=== PATIENT | female | born 1965 | race Caucasian/White ===

== ENCOUNTER 2019-03-03 07:47 | Observation (INO) | payer OTHER ==
[2019-03-03] MEDS ORDERED: PHENAZOPYRIDINE HCL 200 MG TAB PO ONE (08:06)
[2019-03-03] MEDS ORDERED: ceFAZolin 2 GM/DEXTROSE 100 ML IV ONE (08:06)
[2019-03-03] MEDS ORDERED: ACETAMINOPHEN 500 MG TAB PO ONE (08:06)
[2019-03-03] MEDS ORDERED: GABAPENTIN 300 MG CAP PO ONE (08:06)
[2019-03-03] MEDS ORDERED: LIDOCAINE 1% 2 ML INJ ID PRN (08:11)
[2019-03-03] MEDS ORDERED: LR 1,000 ML IV ONE (08:11)
--- NOTE | 2019-03-03 08:30 | PDHPUP ---
History & Physical Update H&P update statement: This history and physical update is based on an assessment of the patient which was completed after admission or registration (within 24 hours), but prior to the surgery/procedure. H&P update: H&P reviewed & patient examined, no change in patient's condition since H&P completed
[2019-03-03] MEDS ORDERED: MIDAZOLAM 2 MG/2 ML VIAL IVP ONE (08:49)
--- NOTE | 2019-03-03 08:53 | PDANEPAE ---
ANE History of Present Illness 53 yo with uterine prolapse ANE Past Medical History - Cardiovascular History Hx Hypertension: No Hx Arrhythmias: No Hx Chest Pain: No Hx Coronary Artery / Peripheral Vascular Disease: No Hx CHF / Valvular Disease: No Hx Palpitations: No - Pulmonary History Hx COPD: No Hx Asthma/Reactive Airway Disease: No Hx Recent Upper Respiratory Infection: No Hx Oxygen in Use at Home: No Hx Sleep Apnea: Yes Sleep Apnea Screening Result - Last Documented: Positive Pulmonary History Comment: PNEUMONIA YRS AGO. EXERCISE INDUCED ASTHMA IN PAST. POS ADITI W/CPAP - Neurologic History Hx Cerebrovascular Accident: No Hx Seizures: No Hx Dementia: No Neurologic History Comment: MIGRAINES - Endocrine History Hx Diabetes: No Endocrine History Comment: HYPOTHYROID - Renal History Hx Renal Disorders: No Renal History Comment: PROLAPSED BLADDER - Liver History Hx Hepatic Disorders: No - Neurological & Psychiatric Hx Hx Neurological and Psychiatric Disorders: No - Cancer History Hx Cancer: No - Congenital Disorder History Hx Congenital Disorders: No - GI History Hx Gastrointestinal Disorders: Yes Gastrointestinal History Comment: RECTAL PROLAPSE. IBS IN PAST - Other Health History Other Health History: NEG - Chronic Pain History Chronic Pain: No - Surgical History Prior Surgeries: BUNIONECTOMIES MELANY. HYSTERECTOMY. INCISIONAL HERNIA. DERMOID CYST ANE Review of Systems Review of systems is: negative Review of Systems: - Exercise capacity METS (RN): 5 METS ANE Patient History - Allergies Allergies/Adverse Reactions: amoxicillin Allergy (Verified 02/15/19 10:55) GI UPSET erythromycin base Allergy (Verified 02/15/19 10:55) GI UPSET Sulfa (Sulfonamide Antibiotics) Allergy (Verified 02/15/19 10:55) PURPLE SKIN SPOTS - Home Medications Home medications: home medication list seen and reviewed Home Medications: [place] Thyroid 02/15/19 [Last Taken 03/03/19 05:30] Herbals/Supplements -Info Only 02/15/19 [Last Taken 03/01/19] Migraine Med 02/15/19 [Last Taken 02/17/19] - NPO status NPO Since - Liquids (Date): 03/03/19 NPO Since - Liquids (Time): 06:20 NPO Since - Solids (Date): 03/02/19 NPO Since - Solids (Time): 20:45 - Anes Hx Anes Hx: post operative nausea and vomiting - Smoking Hx Smoking Status: Never smoked - Alcohol Use Alcohol Use: Other (2 per week) - Family Anes Hx Family Hx Anesthesia Complications: SLOW TO AWAKEN - MOTHER ANE Labs/Vital Signs - Vital Signs Blood Pressure: 145/86 Heart Rate: 83 Respiratory Rate: 16 O2 Sat (%): 96 Height: 168.91 cm Weight: 81.647 kg ANE Physical Exam - Airway Neck exam: FROM Mallampati Score: Class 1 Mouth exam: normal dental/mouth exam - Pulmonary Pulmonary: no respiratory distress - Cardiovascular Cardiovascular: regular rate and rhythym - ASA Status ASA Status: II ANE Anesthesia Plan Anesthesia Plan: general endotracheal anesthesia
[2019-03-03] MEDS ORDERED: BUPIVACAINE/EPI 0.5% 30 ML SDV ONE (08:58)
[2019-03-03] MEDS ORDERED: MIDAZOLAM 2 MG/2 ML VIAL ONE (09:00)
[2019-03-03] MEDS ORDERED: SCOPOLAMINE HYDROBROMIDE 1 MG/3 DAYS PATCH TD SCH (09:00)
[2019-03-03] MEDS ORDERED: SCOPOLAMINE HYDROBROMIDE 1 MG/3 DAYS PATCH TD ONE (09:01)
[2019-03-03] MEDS ORDERED: fentaNYL 250 MCG/5 ML INJ ONE (09:07)
[2019-03-03] MEDS ORDERED: PROPOFOL 200 MG/20 ML VIAL ONE (09:07)
[2019-03-03] MEDS ORDERED: PROPOFOL/EMULSION 500 MG/50 ML BOTTLE IV ONE ×2 (09:08→10:16)
[2019-03-03] MEDS ORDERED: ROCURONIUM 50 MG/5 ML VIAL ONE ×2 (09:09→10:03)
[2019-03-03] MEDS ORDERED: LIDOCAINE 2% 2 ML INJ ONE (09:09)
[2019-03-03] MEDS ORDERED: DEXAMETHASONE 4 MG/ML VIAL ONE (09:13)
[2019-03-03] MEDS ORDERED: fentaNYL 100 MCG/2 ML INJ ONE (10:20)
[2019-03-03] MEDS ORDERED: SUGAMMADEX SODIUM 200 MG/2 ML VIAL IVP ONE (11:04)
[2019-03-03] MEDS ORDERED: HYDROmorphONE/DILAUDID 2 MG/ML INJ ONE (11:18)
--- NOTE | 2019-03-03 11:24 | POSTOPPROG ---
Post Op Note Date of Operation: 03/03/19 Surgeon: Krishan Wu Drop Forger: Alexa Joy Anesthesia: GET(General Endotracheal) Pre-op Diagnosis: Cystocele Post-op Diagnosis: Same Procedure: Robotic sacrocolpopexy, perineorrhaphy, cysto Findings: Ureters function at end of case Inf/Abcess present in the surg proc area at time of surgery?: No EBL: Minimal Complications: None
[2019-03-03] MEDS ORDERED: HYDROmorphONE/DILAUDID 1 MG/ML INJ IVP PRN ×2 (11:29→14:11)
[2019-03-03] MEDS ORDERED: oxyCODONE IR 5 MG TAB PO PRN (11:29)
[2019-03-03] MEDS ORDERED: NALOXONE HCL 0.4 MG/ML INJ IVP PRN (11:29)
[2019-03-03] MEDS ORDERED: PROMETHAZINE HCL 25 MG/ML INJ IVP PRN (11:29)
[2019-03-03] MEDS ORDERED: fentaNYL 100 MCG/2 ML INJ IVP PRN (11:29)
[2019-03-03] MEDS ORDERED: ONDANSETRON 4 MG/2 ML VIAL IVP PRN ×2 (11:29→14:11)
--- NOTE | 2019-03-03 11:30 | POSTANESTH ---
Post Anesthetic Evaluation Cardiovascular Status: Normal, Stable Respiratory Status: Normal, Stable Level of Consciousness/Mental Status: Mildly Sleepy, Arousable Pain Control: Inadeq, Add Tx Required Nausea/Vomiting Control: Adequate, Prn Tx Ordered Complications Possibly Related to Anesthesia: None Noted
--- NOTE | 2019-03-03 12:12 | GOP ---
[f rep st] OPERATIVE REPORT DATE OF OPERATION: 03/03/2019 SURGEON: Krishan Wu MD HAMMER REPAIRER: Alexa Joy CFA. ANESTHESIA: General. PREOPERATIVE DIAGNOSIS: 1. Cystocele. 2. Rectocele. 3. Vault prolapse. POSTOPERATIVE DIAGNOSIS: 1. Cystocele. 2. Rectocele. 3. Vault prolapse. 4. Endometriosis. PROCEDURE PERFORMED: 1. Robotic-assisted laparoscopic sacral colpopexy with mesh. 2. Repair of cystocele and rectocele. 3. Excision of endometriosis. 4. Perineorrhaphy. 5. Cystoscopy. FINDINGS: SPECIMENS: Pelvic peritoneum with endometriosis. ESTIMATED BLOOD LOSS: Scant. DESCRIPTION OF PROCEDURE: The patient is taken to the operating room where she was identified. Gene ral anesthesia was administered and found to be adequate. She was placed in the lithotomy position a nd prepared and draped in the normal sterile fashion. [place] catheter was placed in her bladder. An 8 mm infraumbilical incision was made with the scalpel. The Veress needle with the CO2 gas flowin g was advanced into the peritoneal cavity. The abdomen was then insufflated with carbon dioxide gas. The 8 mm trocar followed by the laparoscope were then inserted. The upper abdomen was unremarkable . Two lateral ports were placed on either side under direct visualization. She then was placed in T rendelenburg position and the da Syed robot docked on the left side. The instruments were brought i nto the abdominal cavity under direct visualization. She was found to have endometriosis over the ap ex of the vagina. This was excised and sent to Pathology. A stent was placed in the vagina. The bl adder was dissected off the anterior vaginal wall down to the level of the bladder neck. The rectum was then dissected off the posterior vaginal wall down to the level of the perineal body. Measuremen ts were then obtained and the mesh trimmed to size. The sigmoid colon was retracted laterally. The peritoneum over the sacral promontory was incised and the fat pad gently dissected off the anterior longitudinal ligament. The mesh was brought into the abdominal cavity. Three sutures of 4-0 [place]-Haresh were used to attach the distal posterior mesh to the perineal body. Two additional rows of [place]-Haresh sutures were placed posteriorly. Three rows were pl aced anteriorly to suture the anterior mesh down to the level of the bladder neck and laterally to th e paravaginal tissue. The stent was then removed. The sacral arm of the mesh was placed over the pr omontory and the tension adjusted to resolve the cystocele and rectocele without undue tension on the vagina. Three sutures of 2-0 [place]-Haresh were used to attach the sacral arm of the mesh to the anterio r longitudinal ligament at the level of the upper first sacral vertebral body below the intervertebra l disk space. The excess mesh was then trimmed. The peritoneum was then closed over the entire mesh with 3-0 V-Loc suture. The robot was then undocked. The fascia was closed with 0 Vicryl, skin with 4-0 Monocryl. Cystoscopy was then performed. Both ureters had vigorous jets of urine. No evidence of bladder, nor urethral injury seen. No mesh, nor suture within the bladder, nor the urethra. No obvious patholog y was seen. A transverse incision was then made along the perineal body. The posterior vaginal epithelium was un dermined with the Metzenbaum scissors and incised sagittally. The epithelium was then dissected off the rectovaginal connective tissue. The connective tissue was plicated midline with 0 Vicryl suture. The transverse perineal and bulbous spongiosis muscles were then likewise plicated in the midline. The excess epithelium was then trimmed and closed with a running 2-0 Vicryl suture. Vaginal packing was then placed. Anesthesia was reversed. The patient taken the PACU awake, in stable condition. COMPLICATIONS: None. DISPOSITION: Patient stable to PACU. /[id number]/MODL
[2019-03-03] MEDS ORDERED: HYDROCODONE/APAP 5/325 TAB PO PRN (14:11)
[2019-03-03] MEDS ORDERED: ONDANSETRON DISINTEGRATING 4 MG TAB PO PRN (14:11)
[2019-03-03] MEDS ORDERED: LR 1,000 ML IV SCH (14:30)
[2019-03-03] MEDS ORDERED: ONDANSETRON 4 MG/2 ML VIAL ONE (14:36)
[2019-03-03] MEDS ORDERED: PROMETHAZINE HCL 25 MG/ML INJ ONE (14:54)
[2019-03-03] MEDS: KETOROLAC 30 MG/1 ML SDV IVP SCH ×2 (16:56→22:39)
[2019-03-03] MEDS: SIMETHICONE 80 MG TAB CHEW PO SCH ×2 (19:30→22:12)
[2019-03-03] MEDS ORDERED: ACETAMINOPHEN 325 MG TAB PO PRN (21:52)
[2019-03-03] MEDS: DOCUSATE SODIUM 100 MG CAP PO SCH (22:04)
[2019-03-04] MEDS: KETOROLAC 30 MG/1 ML SDV IVP SCH (04:58)
[2019-03-04] MEDS: DOCUSATE SODIUM 100 MG CAP PO SCH (09:52)
[2019-03-04] MEDS: SIMETHICONE 80 MG TAB CHEW PO SCH (09:52)
[2019-03-04 10:00] VITALS: BP 99/64
--- NOTE | 2019-03-04 10:05 | GDS ---
[f rep st] DISCHARGE SUMMARY DISCHARGE DIAGNOSIS: Vaginal prolapse. PROCEDURES: 1. Robotic-assisted sacral colpopexy. 2. Repair of cystocele and rectocele. 3. Perineorrhaphy. 4. Excision of endometriosis. 5. Cystoscopy. HISTORY: The patient is a 53-year-old female with symptomatic vaginal prolapse. [facility], where she underwent the above-mentioned procedures without complicati ons. Her postoperative course was uneventful. The morning after surgery, she was ambulating, voiding, and tolerating a general diet. She was discharged home with ibuprofen and Tylenol for pain. She was to follow up in the office 2 weeks after discharge. /[id number]/MODL
[2019-03-06] MEDS ORDERED: PATCH REMOVAL 1 EA PATCH TD SCH (08:49)
== END 2019-03-04 12:00 | disposition home or self-care (01) ==
LOC: FSGY 07:47 → F3N 14:12 → FOB 15:27
PROVIDERS: ADMIT Obstetrics & Gynecology; ATTEND Obstetrics & Gynecology
DX: N81.2 Incomplete uterovaginal prolapse (principal)
CPT/HCPCS: 57260; 57425; G0378; C1763; J0690; J1100; J1170; J1885; J2250; J2405; J2550; J2704; J3010